=== PATIENT | female | born 1995 | race Caucasian/White ===

== ENCOUNTER 2024-02-05 18:55 | Emergency (ER) | payer MEDICAID ==
[~2024-02-05] VITALS: Ht 167.6 cm; Wt 77.3 kg
[2024-02-05 19:01] VITALS: BP 106/61; PULSE 97; RESP 18; TEMP 97.9
[2024-02-05] MEDS: QUEtiapine FUMARATE 100 MG TABLET PO ONE (19:33)
[2024-02-06] MEDS ORDERED: QUET100T PO (20:12)
== END 2024-02-05 20:16 | disposition home or self-care (01) ==
LOC: EMS 18:56
DX: F41.9 Anxiety disorder, unspecified (principal); J45.909 Unspecified asthma, uncomplicated; F32.A Depression, unspecified; Z98.890 Other specified postprocedural states; Z76.0 Encounter for issue of repeat prescription
CPT/HCPCS: 99283

== ENCOUNTER 2024-05-03 15:55 | Emergency (ER) | payer MEDICAID ==
[~2024-05-03] VITALS: Ht 165.1 cm; Wt 65.9 kg
[~2024-05-03 15:55] MED LIST: QUET100T PO
[2024-05-03 16:20] VITALS: BP 114/88; PULSE 87; RESP 18; TEMP 99.1
[2024-05-03] MEDS ORDERED: FLUO-418 PO ×2 (16:20→18:07)
[2024-05-03] MEDS ORDERED: QUET100T PO (18:07)
== END 2024-05-03 19:09 | disposition home or self-care (01) ==
LOC: EMS 15:55
DX: F41.9 Anxiety disorder, unspecified (principal); F32.A Depression, unspecified; J45.909 Unspecified asthma, uncomplicated; Z98.890 Other specified postprocedural states; Z76.0 Encounter for issue of repeat prescription
CPT/HCPCS: 99281; Z7502